=== PATIENT | male | born 1990 | race Caucasian/White ===

== ENCOUNTER 2016-10-04 22:53 | Emergency (ER) | payer MEDICAID ==
[~2016-10-04] VITALS: Ht 167.6 cm; Wt 54.6 kg
[2016-10-04 22:56] VITALS: BP 114/73
== END 2016-10-05 00:47 | disposition home or self-care (01) ==
LOC: ED 10-05 00:43
DX: J02.8 Acute pharyngitis due to other specified organisms (principal); B97.89 Other viral agents as the cause of diseases classified elsewhere; Z88.7 Allergy status to serum and vaccine
CPT/HCPCS: 87081; 87147; 87880; 99284

== ENCOUNTER 2019-12-21 01:38 | Inpatient (IN) | payer MEDICAID, OTHER ==
[~2019-12-21] VITALS: Ht 167.6 cm; Wt 47.0 kg
[2019-12-21] MEDS ORDERED: SODIUM CHLORIDE 0.9% 1,000ML IVBOLUS ONE ×2 (02:00→03:00)
[2019-12-21] MEDS ORDERED: ONDANSETRON 2MG/ML, 2ML ONE (02:00)
[2019-12-21] MEDS ORDERED: ONDANSETRON 2MG/ML, 2ML IVPush ONE (02:00)
[2019-12-21 02:11] LABS: BASOPHILS # (AUTO) 0.02 x10^3/uL (0-0.1); BASOPHILS % (AUTO) 0 % (0-1); EOSINOPHILS # (AUTO) 0.01 x10^3/uL (0-0.4); EOSINOPHILS % (AUTO) 0 % (1-7); LYMPHOCYTES # (AUTO) 1.08 x10^3/uL (1-3.4); LYMPHOCYTES % (AUTO) 13 % (22-44); MD NO; MEAN CORPUSCULAR HEMOGLOBIN 31.7 pg (27.5-34.5); MEAN CORPUSCULAR HGB CONC 33.1 g/dL (33.2-36.2); MEAN CORPUSCULAR VOLUME 95.6 fL (81-97); MONOCYTES # (AUTO) 0.41 x10^3/uL (0.2-0.8); MONOCYTES % (AUTO) 5 % (2-9); NEUTROPHILS # (AUTO) 6.98 x10^3/uL (1.8-6.8); NEUTROPHILS % (AUTO) 82 % (42-75); PLATELET COUNT 256 x10^3/uL (130-400); RED BLOOD COUNT 5.17 x10^6/uL (4.38-5.82); RED CELL DISTRIBUTION WIDTH 12.4 % (9.4-14.8)
[2019-12-21 02:22] LABS: ALANINE AMINOTRANSFERASE 88 U/L (12-78); ALBUMIN 3.3 g/dL (3.4-5.0); ANION GAP 21 mmol/L (5-15); CALCIUM 8.3 mg/dL (8.5-10.1); CHLORIDE 95 mmol/L (98-107); CREATININE 1.15 mg/dL (0.7-1.3)
[2019-12-21 02:25] LABS: ALKALINE PHOSPHATASE 110 U/L (45-117); BILIRUBIN,TOTAL 0.8 mg/dL (0.2-1.0); TOTAL PROTEIN 7.3 g/dL (6.4-8.2)
[2019-12-21] MEDS ORDERED: REGULAR INSULIN 100 UNITS in SODIUM CHLORIDE 0.9% 99 ML IV PRN ×2 (02:33→02:42)
[2019-12-21] MEDS ORDERED: GLUCAGON 1 MG IM PRN (03:00)
[2019-12-21] MEDS ORDERED: LACTULOSE 10 GM/15 ML UDC PO PRN (03:00)
[2019-12-21] MEDS ORDERED: DEXTROSE 50%, 50ML SYRINGE IVPush PRN (03:00)
[2019-12-21] MEDS ORDERED: DEXTROSE 4 GM TAB.CHEW PO PRN (03:00)
[2019-12-21] MEDS ORDERED: ONDANSETRON ODT 4 MG PO PRN (03:00)
[2019-12-21 03:28] LABS: ACETONE, SERUM Large (80mg/dL) (Negative)
[2019-12-21 03:54] LABS: PH, VENOUS 7.125 pH (7.320-7.420)
[2019-12-21 05:00] VITALS: BP 116/75
[2019-12-21 05:51] LABS: ESTIMATED AVERAGE GLUCOSE 355 mg/dL (0-126)
[2019-12-21] MEDS: SODIUM CHLORIDE 0.9% 1,000 ML IV SCH ×2 (06:19→11:00)
[2019-12-21 08:29] LABS: ANION GAP 15 mmol/L (5-15); CALCIUM 7.1 mg/dL (8.5-10.1); CHLORIDE 111 mmol/L (98-107); CREATININE 0.79 mg/dL (0.7-1.3)
[2019-12-21] MEDS: SODIUM CHLORIDE FLUSH 10ML SYR IVF SCH ×2 (09:21→19:23)
[2019-12-21] MEDS ORDERED: POTASSIUM CHLORIDE 20 MEQ TAB.ER.PRT PO ONE ×2 (09:30→18:00)
[2019-12-21] MEDS: D5%-0.45NACL+KCL 20MEQ 1,000 ML IV SCH ×2 (11:00→19:22)
[2019-12-21 12:01] LABS: ANION GAP 11 mmol/L (5-15); CALCIUM 7.6 mg/dL (8.5-10.1); CHLORIDE 112 mmol/L (98-107); CREATININE 0.85 mg/dL (0.7-1.3)
[2019-12-21 16:36] LABS: ANION GAP 7 mmol/L (5-15); CALCIUM 6.8 mg/dL (8.5-10.1); CHLORIDE 108 mmol/L (98-107); CREATININE 0.72 mg/dL (0.7-1.3)
[2019-12-21] MEDS ORDERED: GLIP2.5T3 PO (16:54)
[2019-12-21] MEDS ORDERED: METF500T PO (16:54)
[2019-12-21] MEDS ORDERED: METF1000 PO (16:54)
[2019-12-21 21:07] LABS: ANION GAP 5 mmol/L (5-15); CALCIUM 6.9 mg/dL (8.5-10.1); CHLORIDE 108 mmol/L (98-107); CREATININE 0.69 mg/dL (0.7-1.3)
[2019-12-22 01:39] LABS: ANION GAP 4 mmol/L (5-15); CALCIUM 7.1 mg/dL (8.5-10.1); CHLORIDE 108 mmol/L (98-107); CREATININE 0.65 mg/dL (0.7-1.3)
[2019-12-22] MEDS ORDERED: POTASSIUM CHLORIDE 20 MEQ TAB.ER.PRT ONE (01:57)
[2019-12-22] MEDS ORDERED: POTASSIUM CHLORIDE 20 MEQ TAB.ER.PRT PO ONE ×2 (02:00→05:30)
[2019-12-22] MEDS: D5%-0.45NACL+KCL 20MEQ 1,000 ML IV SCH (03:29)
[2019-12-22 04:00] VITALS: BP 95/55
[2019-12-22 04:59] LABS: ALBUMIN 2.3 g/dL (3.4-5.0); ANION GAP 3 mmol/L (5-15); CALCIUM 7.5 mg/dL (8.5-10.1); CHLORIDE 108 mmol/L (98-107); CREATININE 0.57 mg/dL (0.7-1.3)
[2019-12-22 05:05] LABS: ALANINE AMINOTRANSFERASE 53 U/L (12-78); ALKALINE PHOSPHATASE 69 U/L (45-117); BILIRUBIN,TOTAL 0.6 mg/dL (0.2-1.0); CHOL/HDL RATIO 3.8; CHOLESTEROL, TOTAL 185 mg/dL (140-239); HDL CHOL % 26 % (26-37); HDL CHOLESTEROL (DIRECT) 49 mg/dL (40-60); LDL CHOLESTEROL,CALCULATED 113 mg/dL (54-169); LDL/HDL RATIO 2.3 (0.5-3.0); TOTAL PROTEIN 5.1 g/dL (6.4-8.2); TRIGLYCERIDES 114 mg/dL (50-200); VLDL CHOLESTEROL 23 mg/dL (0-25)
[2019-12-22] MEDS ORDERED: MAGNESIUM SULFATE PMX 2GM/50ML 50 ML IV ONE (05:30)
[2019-12-22] MEDS ORDERED: INSULIN GLARGINE 100 UNITS/ML, PEN ONE (08:46)
[2019-12-22] MEDS: INSULIN GLARGINE 100 UNITS/ML, PEN SQ-INSULIN SCH ×2 (08:50→20:12)
[2019-12-22] MEDS: POTASSIUM ACID PHOSPHATE 500 MG TABLET.SOL PO SCH ×3 (09:18→20:11)
[2019-12-22] MEDS: SODIUM CHLORIDE FLUSH 10ML SYR IVF SCH ×3 (09:19→20:14)
[2019-12-22] MEDS ORDERED: POTASSIUM CHLORIDE 20 MEQ PACKET PO ONE (09:30)
[2019-12-22] MEDS: SODIUM CHLORIDE 0.9% 1,000 ML IV SCH ×2 (09:41→18:22)
[2019-12-22] MEDS ORDERED: DEXTROSE 50%, 50ML SYRINGE IVPush PRN (10:30)
[2019-12-22] MEDS ORDERED: DEXTROSE 4 GM TAB.CHEW PO PRN (10:30)
[2019-12-22] MEDS ORDERED: GLUCAGON 1 MG IM PRN (10:30)
[2019-12-22] MEDS: INSULIN LISPRO 100 UNITS/ML, PEN SQ-INSULIN SCH ×3 (12:02→20:12)
[2019-12-22] MEDS: ENOXAPARIN 40 MG/0.4 ML SQ SCH (12:02)
[2019-12-22 12:26] LABS: ANION GAP 5 mmol/L (5-15); CALCIUM 7.9 mg/dL (8.5-10.1); CHLORIDE 105 mmol/L (98-107); CREATININE 0.49 mg/dL (0.7-1.3)
[2019-12-22 18:54] VITALS: BP 96/60
[2019-12-23 02:08] VITALS: BP 94/56
[2019-12-23 02:16] VITALS: BP 94/56
[2019-12-23] MEDS: SODIUM CHLORIDE 0.9% 1,000 ML IV SCH ×3 (03:14→21:32)
[2019-12-23] MEDS: POTASSIUM ACID PHOSPHATE 500 MG TABLET.SOL PO SCH ×3 (03:19→17:29)
[2019-12-23 05:23] LABS: ALBUMIN 2.4 g/dL (3.4-5.0); ANION GAP 7 mmol/L (5-15); CALCIUM 7.8 mg/dL (8.5-10.1); CHLORIDE 103 mmol/L (98-107)
[2019-12-23 05:27] LABS: ALANINE AMINOTRANSFERASE 56 U/L (12-78); ALKALINE PHOSPHATASE 65 U/L (45-117); BILIRUBIN,TOTAL 0.8 mg/dL (0.2-1.0); CREATININE 0.35 mg/dL (0.7-1.3); TOTAL PROTEIN 5.1 g/dL (6.4-8.2)
[2019-12-23] MEDS: INSULIN LISPRO 100 UNITS/ML, PEN SQ-INSULIN SCH ×4 (07:00→21:32)
[2019-12-23 07:30] LABS: MEAN CORPUSCULAR HEMOGLOBIN 31.1 pg (27.5-34.5); MEAN CORPUSCULAR HGB CONC 33.3 g/dL (33.2-36.2); MEAN CORPUSCULAR VOLUME 93.5 fL (81-97); PLATELET COUNT 194 x10^3/uL (130-400); RED BLOOD COUNT 4.01 x10^6/uL (4.38-5.82); RED CELL DISTRIBUTION WIDTH 12.4 % (9.4-14.8)
[2019-12-23 07:57] LABS: BASOPHILS # (AUTO) 0.01 x10^3/uL (0-0.1); BASOPHILS % (AUTO) 0 % (0-1); EOSINOPHILS # (AUTO) 0.01 x10^3/uL (0-0.4); EOSINOPHILS % (AUTO) 0 % (1-7); LYMPHOCYTES # (AUTO) 1.21 x10^3/uL (1-3.4); LYMPHOCYTES % (AUTO) 31 % (22-44); MD SCAN; MONOCYTES # (AUTO) 0.28 x10^3/uL (0.2-0.8); MONOCYTES % (AUTO) 7 % (2-9); NEUTROPHILS # (AUTO) 2.34 x10^3/uL (1.8-6.8); NEUTROPHILS % (AUTO) 61 % (42-75)
[2019-12-23] MEDS: POTASSIUM CHLORIDE 20 MEQ TAB.ER.PRT PO SCH ×3 (08:22→17:28)
[2019-12-23] MEDS: SODIUM CHLORIDE FLUSH 10ML SYR IVF SCH ×4 (08:23→21:32)
[2019-12-23] MEDS ORDERED: INSULIN GLARGINE 100 UNITS/ML, PEN SQ-INSULIN SCH (09:00)
[2019-12-23] MEDS: MAGNESIUM OXIDE 400 MG TABLET PO SCH (09:59)
[2019-12-23] MEDS: ENOXAPARIN 40 MG/0.4 ML SQ SCH (10:30)
[2019-12-23 12:50] VITALS: BP 98/58
[2019-12-23 18:37] VITALS: BP 99/61
[2019-12-24 00:40] VITALS: BP 99/64
[2019-12-24] MEDS: SODIUM CHLORIDE 0.9% 1,000 ML IV SCH ×3 (04:38→19:16)
[2019-12-24 05:24] LABS: BASOPHILS # (AUTO) 0.02 x10^3/uL (0-0.1); BASOPHILS % (AUTO) 0 % (0-1); EOSINOPHILS # (AUTO) 0.05 x10^3/uL (0-0.4); EOSINOPHILS % (AUTO) 1 % (1-7); LYMPHOCYTES # (AUTO) 1.42 x10^3/uL (1-3.4); LYMPHOCYTES % (AUTO) 39 % (22-44); MD NO; MEAN CORPUSCULAR HEMOGLOBIN 31.6 pg (27.5-34.5); MEAN CORPUSCULAR HGB CONC 33.5 g/dL (33.2-36.2); MEAN CORPUSCULAR VOLUME 94.3 fL (81-97); MEAN PLATELET VOLUME 8.7 fL (7.4-10.4); MONOCYTES # (AUTO) 0.27 x10^3/uL (0.2-0.8); MONOCYTES % (AUTO) 8 % (2-9); NEUTROPHILS # (AUTO) 1.89 x10^3/uL (1.8-6.8); NEUTROPHILS % (AUTO) 52 % (42-75); PLATELET COUNT 174 x10^3/uL (130-400); RED BLOOD COUNT 3.65 x10^6/uL (4.38-5.82); RED CELL DISTRIBUTION WIDTH 12.6 % (9.4-14.8)
[2019-12-24 05:34] LABS: ANION GAP 6 mmol/L (5-15); CALCIUM 7.9 mg/dL (8.5-10.1); CHLORIDE 103 mmol/L (98-107)
[2019-12-24 05:36] LABS: CREATININE 0.63 mg/dL (0.7-1.3)
[2019-12-24 07:08] VITALS: BP 95/61
[2019-12-24] MEDS: INSULIN LISPRO 100 UNITS/ML, PEN SQ-INSULIN SCH ×4 (07:55→20:11)
[2019-12-24] MEDS: INSULIN GLARGINE 100 UNITS/ML, PEN SQ-INSULIN SCH (09:21)
[2019-12-24] MEDS: MAGNESIUM OXIDE 400 MG TABLET PO SCH (09:21)
[2019-12-24] MEDS: ENOXAPARIN 40 MG/0.4 ML SQ SCH (09:22)
[2019-12-24] MEDS: SODIUM CHLORIDE FLUSH 10ML SYR IVF SCH ×5 (09:22→20:12)
[2019-12-24 13:32] VITALS: BP 92/49
[2019-12-24] MEDS ORDERED: DEXTROSE 50%, 50ML SYRINGE IVPush PRN (14:30)
[2019-12-24] MEDS ORDERED: DEXTROSE 4 GM TAB.CHEW PO PRN (14:30)
[2019-12-24] MEDS ORDERED: GLUCAGON 1 MG IM PRN (14:30)
[2019-12-24 19:34] VITALS: BP 118/76
[2019-12-25 01:05] VITALS: BP 109/63
[2019-12-25] MEDS: SODIUM CHLORIDE 0.9% 1,000 ML IV SCH (04:15)
[2019-12-25 05:16] LABS: ANION GAP 4 mmol/L (5-15); CALCIUM 7.9 mg/dL (8.5-10.1); CHLORIDE 103 mmol/L (98-107); CREATININE 0.52 mg/dL (0.7-1.3)
[2019-12-25 05:26] LABS: BASOPHILS # (AUTO) 0.03 x10^3/uL (0-0.1); BASOPHILS % (AUTO) 1 % (0-1); EOSINOPHILS # (AUTO) 0.08 x10^3/uL (0-0.4); EOSINOPHILS % (AUTO) 2 % (1-7); LYMPHOCYTES # (AUTO) 1.92 x10^3/uL (1-3.4); LYMPHOCYTES % (AUTO) 42 % (22-44); MD NO; MEAN CORPUSCULAR HEMOGLOBIN 31.4 pg (27.5-34.5); MEAN CORPUSCULAR HGB CONC 33.2 g/dL (33.2-36.2); MEAN CORPUSCULAR VOLUME 94.4 fL (81-97); MEAN PLATELET VOLUME 8.7 fL (7.4-10.4); MONOCYTES # (AUTO) 0.36 x10^3/uL (0.2-0.8); MONOCYTES % (AUTO) 8 % (2-9); NEUTROPHILS # (AUTO) 2.16 x10^3/uL (1.8-6.8); NEUTROPHILS % (AUTO) 48 % (42-75); PLATELET COUNT 245 x10^3/uL (130-400); RED BLOOD COUNT 3.76 x10^6/uL (4.38-5.82); RED CELL DISTRIBUTION WIDTH 12.8 % (9.4-14.8)
[2019-12-25 07:26] VITALS: BP 100/64
[2019-12-25] MEDS: INSULIN LISPRO 100 UNITS/ML, PEN SQ-INSULIN SCH ×2 (07:50→12:06)
[2019-12-25] MEDS: SODIUM CHLORIDE FLUSH 10ML SYR IVF SCH ×3 (07:51)
[2019-12-25] MEDS: INSULIN GLARGINE 100 UNITS/ML, PEN SQ-INSULIN SCH (07:51)
[2019-12-25] MEDS: MAGNESIUM OXIDE 400 MG TABLET PO SCH (07:52)
[2019-12-25] MEDS ORDERED: MAGN400T50 PO (09:22)
[2019-12-25] MEDS ORDERED: INSU100I13 SQ-INSULIN (09:22)
[2019-12-25] MEDS ORDERED: INSU100I11 SQ-INSULIN (09:22)
[2019-12-25] MEDS: ENOXAPARIN 40 MG/0.4 ML SQ SCH (10:30)
[2019-12-25 15:10] VITALS: BP 120/76
[2019-12-26] MEDS ORDERED: INSULIN GLARGINE 100 UNITS/ML, PEN SQ-INSULIN SCH (09:00)
== END 2019-12-25 15:32 | disposition home or self-care (01) | DRG 438 ==
LOC: ED 02:16 → EDIP 02:56 → CCU 04:01 → 3N 12-22 12:30 → DCLOUNGE 12-25 15:27
PROVIDERS: ADMIT Family Medicine; ATTEND Internal Medicine
DX: K85.90 Acute pancreatitis without necrosis or infection, unspecified (principal); E10.10 Type 1 diabetes mellitus with ketoacidosis without coma; G93.41 Metabolic encephalopathy; B17.9 Acute viral hepatitis, unspecified; E87.1 Hypo-osmolality and hyponatremia; E10.649 Type 1 diabetes mellitus with hypoglycemia without coma; E83.39 Other disorders of phosphorus metabolism; E83.42 Hypomagnesemia; E83.51 Hypocalcemia; E87.6 Hypokalemia; F17.200 Nicotine dependence, unspecified, uncomplicated; Z79.4 Long term (current) use of insulin; Z91.14 Patient's other noncompliance with medication regimen; Z91.19 Patient's noncompliance with other medical treatment and regimen; Z88.7 Allergy status to serum and vaccine; Z88.8 Allergy status to other drugs, medicaments and biological substances
CPT/HCPCS: 36415; 76700; 80048; 80053; 80061; 80074; 82010; 82803; 82962; 83036; 83605; 83690; 83735; 84100; 85025; 87081; 87806; 96374; 96375; G0378; J1650; J2405; G0475; J1815; J3475; J3480; J7030

== ENCOUNTER 2019-12-28 16:06 | Emergency (ER) | payer SELFPAY ==
[~2019-12-28] VITALS: Ht 167.6 cm; Wt 47.5 kg
[~2019-12-28 16:06] MED LIST: GLIP2.5T3 PO; INSU100I11 SQ-INSULIN; INSU100I13 SQ-INSULIN; MAGN400T50 PO; METF1000 PO; METF500T PO
--- NOTE | 2019-12-28 16:24 | NUR ---
task rn: Pt arrived to ed with report leg swelling and allergic reaction to new insulin. Pt reports that he started the new insulin and legs feel itchy and painful and appear swollen. Pt was able to ambulate without difficulty. Denies in hyper/hpyoglycemic symptoms at this time. Pt resting in bed and awaiting further orders.
--- NOTE | 2019-12-28 16:44 | NUR ---
Blood glucose 365
--- NOTE | 2019-12-28 16:44 | NUR ---
BLOOD GLUCOSE 365
[2019-12-28 16:55] LABS: PH, VENOUS 7.409 pH (7.320-7.420)
[2019-12-28 16:56] LABS: FIO2 ROOM AIR %
[2019-12-28 16:58] LABS: MEAN CORPUSCULAR HEMOGLOBIN 31.6 pg (27.5-34.5); MEAN CORPUSCULAR HGB CONC 32.9 g/dL (33.2-36.2); MEAN CORPUSCULAR VOLUME 96.1 fL (81-97); MEAN PLATELET VOLUME 6.4 fL (7.4-10.4); PLATELET COUNT 607 x10^3/uL (130-400); RED BLOOD COUNT 3.45 x10^6/uL (4.38-5.82); RED CELL DISTRIBUTION WIDTH 12.7 % (9.4-14.8)
[2019-12-28 17:00] LABS: ALANINE AMINOTRANSFERASE 134 U/L (12-78); ANION GAP 8 mmol/L (5-15); CALCIUM 8.5 mg/dL (8.5-10.1); CHLORIDE 101 mmol/L (98-107); CREATININE 0.97 mg/dL (0.7-1.3)
[2019-12-28 17:04] LABS: ALKALINE PHOSPHATASE 80 U/L (45-117); BILIRUBIN,TOTAL 0.3 mg/dL (0.2-1.0); TOTAL PROTEIN 6.6 g/dL (6.4-8.2)
[2019-12-28 17:12] LABS: BASOPHILS # (AUTO) 0.03 x10^3/uL (0-0.1); BASOPHILS % (AUTO) 0 % (0-1); EOSINOPHILS # (AUTO) 0.07 x10^3/uL (0-0.4); EOSINOPHILS % (AUTO) 1 % (1-7); LYMPHOCYTES # (AUTO) 1.52 x10^3/uL (1-3.4); LYMPHOCYTES % (AUTO) 20 % (22-44); MONOCYTES # (AUTO) 1.11 x10^3/uL (0.2-0.8); MONOCYTES % (AUTO) 15 % (2-9); NEUTROPHILS # (AUTO) 4.77 x10^3/uL (1.8-6.8); NEUTROPHILS % (AUTO) 64 % (42-75)
[2019-12-28 17:13] LABS: MD SCAN
[2019-12-28 17:16] LABS: ACETONE, SERUM Trace (Negative)
[2019-12-28 18:20] VITALS: BP 105/56
== END 2019-12-28 18:50 | disposition home or self-care (01) ==
LOC: ED 16:35
DX: I83.12 Varicose veins of left lower extremity with inflammation (principal); I83.11 Varicose veins of right lower extremity with inflammation; R60.0 Localized edema; E11.65 Type 2 diabetes mellitus with hyperglycemia; R00.0 Tachycardia, unspecified; F17.210 Nicotine dependence, cigarettes, uncomplicated
CPT/HCPCS: 71045; 80053; 82010; 82803; 82962; 83880; 85025; 93005; 99285

== ENCOUNTER 2020-02-01 13:58 | Inpatient (IN) | payer MEDICAID ==
[~2020-02-01] VITALS: Ht 167.6 cm; Wt 48.3 kg
--- NOTE | 2020-02-01 15:14 | NUR ---
LANTUS AND LISPRO INSULINS WERE STOLEN A WEEK AGO. FATIGUE AND SLEEPY X 2 DAYS. INFN=[id number]/DL IN TRIAGE. PT IN BED WITH CONT SPO2, BP Q 30 MIN, CALL LIGHT IN REACH. 20IV PUT IN WITH LAB DRAW IN RIGHT AC. URINE SENT TO LAB.
[2020-02-01 15:18] LABS: BASOPHILS # (AUTO) 0.05 x10^3/uL (0-0.1); BASOPHILS % (AUTO) 1 % (0-1); EOSINOPHILS # (AUTO) 0.08 x10^3/uL (0-0.4); EOSINOPHILS % (AUTO) 1 % (1-7); LYMPHOCYTES # (AUTO) 1.55 x10^3/uL (1-3.4); LYMPHOCYTES % (AUTO) 22 % (22-44); MD NO; MEAN CORPUSCULAR HEMOGLOBIN 32.4 pg (27.5-34.5); MEAN CORPUSCULAR HGB CONC 33.2 g/dL (33.2-36.2); MEAN PLATELET VOLUME 8.2 fL (7.4-10.4); MONOCYTES # (AUTO) 0.33 x10^3/uL (0.2-0.8); MONOCYTES % (AUTO) 5 % (2-9); NEUTROPHILS # (AUTO) 5.05 x10^3/uL (1.8-6.8); NEUTROPHILS % (AUTO) 72 % (42-75); PLATELET COUNT 357 x10^3/uL (130-400); RED BLOOD COUNT 4.72 x10^6/uL (4.38-5.82); RED CELL DISTRIBUTION WIDTH 12.5 % (9.4-14.8)
[2020-02-01 15:28] LABS: ALBUMIN 3.8 g/dL (3.4-5.0); ANION GAP 18 mmol/L (5-15); CALCIUM 8.8 mg/dL (8.5-10.1); CHLORIDE 94 mmol/L (98-107); CREATININE 1.18 mg/dL (0.7-1.3)
[2020-02-01] MEDS ORDERED: SODIUM CHLORIDE FLUSH 10ML SYR IVF ONE (15:30)
[2020-02-01] MEDS ORDERED: SODIUM CHLORIDE 0.9% 1,000ML IVBOLUS ONE ×2 (15:30→16:00)
[2020-02-01] MEDS ORDERED: BISACODYL 10 MG SUPP PR PRN (16:00)
[2020-02-01] MEDS ORDERED: ONDANSETRON 2MG/ML, 2ML IVPush PRN (16:00)
[2020-02-01] MEDS ORDERED: INSULIN LISPRO 100 UNITS/ML, PEN SQ-INSULIN SCH (16:00)
[2020-02-01] MEDS ORDERED: POLYETHYLENE GLYCOL 17 GM PACKET PO PRN (16:00)
[2020-02-01] MEDS ORDERED: ACETAMINOPHEN 325 MG TABLET PO PRN (16:00)
[2020-02-01] MEDS ORDERED: LABETALOL 5MG/ML, 20ML IVPush PRN (16:00)
[2020-02-01] MEDS ORDERED: ENALAPRILAT 1.25 MG/ML, 2ML IVPush PRN (16:00)
[2020-02-01] MEDS ORDERED: ENOXAPARIN 40 MG/0.4 ML ONE (16:10)
[2020-02-01] MEDS ORDERED: NS + 20MEQ KCL 1,000 ML IV ONE (16:11)
[2020-02-01 16:16] LABS: PH, VENOUS 7.155 pH (7.320-7.420)
[2020-02-01] MEDS: NS + 20MEQ KCL 1,000 ML IV SCH ×2 (16:17→23:54)
[2020-02-01] MEDS: ENOXAPARIN 40 MG/0.4 ML SQ SCH (16:18)
[2020-02-01 16:35] LABS: ACETONE, SERUM Large (80mg/dL) (Negative)
[2020-02-01] MEDS: INSULIN GLARGINE 100 UNITS/ML, PEN SQ-INSULIN SCH (16:57)
[2020-02-01] MEDS: INSULIN LISPRO 100 UNITS/ML, PEN SQ-INSULIN SCH (16:59)
[2020-02-01 18:43] VITALS: BP 101/62
[2020-02-01 22:25] LABS: ANION GAP 12 mmol/L (5-15); CALCIUM 7.9 mg/dL (8.5-10.1); CHLORIDE 103 mmol/L (98-107); CREATININE 0.78 mg/dL (0.7-1.3)
[2020-02-02 02:31] LABS: ANION GAP 9 mmol/L (5-15); CALCIUM 7.7 mg/dL (8.5-10.1); CHLORIDE 103 mmol/L (98-107); CREATININE 0.63 mg/dL (0.7-1.3)
[2020-02-02 02:56] VITALS: BP 101/66
[2020-02-02] MEDS: INSULIN GLARGINE 100 UNITS/ML, PEN SQ-INSULIN SCH ×2 (04:32→20:07)
[2020-02-02 06:00] LABS: ALANINE AMINOTRANSFERASE 47 U/L (12-78); ALBUMIN 2.7 g/dL (3.4-5.0); ANION GAP 8 mmol/L (5-15); CALCIUM 7.7 mg/dL (8.5-10.1); CHLORIDE 104 mmol/L (98-107); CREATININE 0.64 mg/dL (0.7-1.3)
[2020-02-02 06:02] LABS: ALKALINE PHOSPHATASE 78 U/L (45-117); BILIRUBIN,TOTAL 0.4 mg/dL (0.2-1.0); TOTAL PROTEIN 5.9 g/dL (6.4-8.2)
[2020-02-02 06:03] LABS: BASOPHILS # (AUTO) 0.03 x10^3/uL (0-0.1); BASOPHILS % (AUTO) 1 % (0-1); EOSINOPHILS # (AUTO) 0.18 x10^3/uL (0-0.4); EOSINOPHILS % (AUTO) 3 % (1-7); LYMPHOCYTES # (AUTO) 1.89 x10^3/uL (1-3.4); LYMPHOCYTES % (AUTO) 31 % (22-44); MD NO; MEAN CORPUSCULAR HEMOGLOBIN 32.8 pg (27.5-34.5); MEAN CORPUSCULAR HGB CONC 33.4 g/dL (33.2-36.2); MEAN PLATELET VOLUME 8.4 fL (7.4-10.4); MONOCYTES # (AUTO) 0.37 x10^3/uL (0.2-0.8); MONOCYTES % (AUTO) 6 % (2-9); NEUTROPHILS # (AUTO) 3.56 x10^3/uL (1.8-6.8); NEUTROPHILS % (AUTO) 59 % (42-75); PLATELET COUNT 303 x10^3/uL (130-400); RED BLOOD COUNT 4.47 x10^6/uL (4.38-5.82); RED CELL DISTRIBUTION WIDTH 12.4 % (9.4-14.8)
[2020-02-02 07:38] VITALS: BP 105/70
[2020-02-02] MEDS: NS + 20MEQ KCL 1,000 ML IV SCH ×2 (08:17→17:53)
[2020-02-02] MEDS: SENNA/DOCUSATE TABLET PO SCH (08:17)
[2020-02-02] MEDS: INSULIN LISPRO 100 UNITS/ML, PEN SQ-INSULIN SCH ×4 (09:05→20:08)
[2020-02-02 14:13] VITALS: BP 100/68
[2020-02-02] MEDS: ENOXAPARIN 40 MG/0.4 ML SQ SCH (17:18)
[2020-02-03] MEDS: NS + 20MEQ KCL 1,000 ML IV SCH (00:13)
[2020-02-03 00:20] VITALS: BP 92/59
[2020-02-03 06:55] VITALS: BP 89/52
[2020-02-03 07:59] VITALS: BP 98/52
[2020-02-03] MEDS: INSULIN LISPRO 100 UNITS/ML, PEN SQ-INSULIN SCH ×2 (08:03→12:06)
[2020-02-03 08:04] VITALS: BP 98/60
[2020-02-03] MEDS: SENNA/DOCUSATE TABLET PO SCH (08:06)
[2020-02-03 14:07] VITALS: BP 117/72
[2020-02-03] MEDS ORDERED: INSU100I11 SQ-INSULIN (14:12)
[2020-02-03] MEDS ORDERED: INSU100I13 SQ-INSULIN (14:12)
[2020-02-03] MEDS ORDERED: INSULIN GLARGINE 100 UNITS/ML, PEN SQ-INSULIN SCH (16:00)
== END 2020-02-03 15:55 | disposition home or self-care (01) | DRG 420 ==
LOC: ED 14:57 → EDIP 15:51 → 5SO 18:22 → DCLOUNGE 02-03 15:50
PROVIDERS: ADMIT Internal Medicine; ATTEND Internal Medicine
DX: E10.10 Type 1 diabetes mellitus with ketoacidosis without coma (principal); F15.90 Other stimulant use, unspecified, uncomplicated; G93.41 Metabolic encephalopathy; I87.2 Venous insufficiency (chronic) (peripheral); Z83.3 Family history of diabetes mellitus; Z91.14 Patient's other noncompliance with medication regimen; Z72.89 Other problems related to lifestyle
CPT/HCPCS: 36415; 80048; 80053; 82010; 82040; 82803; 82962; 83735; 84100; 85025; 96372; 99285; G0378; J1650; J3480; J1815; J7030